=== PATIENT | female | born 1960 | race Caucasian/White ===

== ENCOUNTER 2021-07-20 07:21 | Day surgery (SDC) | payer OTHER ==
[2021-07-20] MEDS ORDERED: Ringers Lactate 1,000 ML IV ONE (07:30)
[2021-07-20] MEDS ORDERED: LIDOCAINE 1% MPF 5 ML VIAL ONE (07:58)
[2021-07-20] MEDS ORDERED: propofoL 200 MG/20 ML VIAL IV ONE ×2 (07:58)
[2021-07-20] MEDS ORDERED: ONDANSETRON 4 MG/2 ML VIAL ONE (08:52)
--- NOTE | 2021-07-20 09:36 | OP ---
Surgeon: Anders Agosto MD Procedure Performed: Colonoscopy. Indication For Procedure: Modification of bowel habits, worsening constipation. Anesthesia: Monitored anesthesia care. Complexity: High due to patient's pulmonary issues. Technique: After obtaining informed consent from the patient explaining risks and complications whic h include, but are not limited to bleeding, infection, perforation, and anesthesia complication, she was placed in the left lateral position, and sedation was given. A digital rectal exam was performed and scope inserted into the rectum and carefully guided up till the cecum. The cecum was identified by the appendiceal orifice, which appeared to be postsurgical due to appendectomy and ileocecal valv e and also by one-to-one pressure in the right lower quadrant. Gradually, the scope was withdrawn an d the mucosa carefully examined. Scope withdrawal time was 15 minutes. Quality of prep was good. Findings: The entire colon was quite redundant, consistent with history of constipation. In the cec um, 4 to 5 mm sessile polyp was seen and this was removed by hot biopsy polypectomy. In the transver se colon, a 5 mm sessile polyp was seen which was seen removed with hot biopsy polypectomy. In the r ectum, a 3 to 4 mm polyp was seen and this was also removed by hot biopsy polypectomy. Retroflexion revealed grade 1 internal hemorrhoids. Complications: None. Tolerance To Anesthesia: Excellent. Postoperative Diagnosis: Polyps, redundant colon. Plan: Await pathology results. Return to GI clinic in 2 weeks. Repeat colonoscopy in 3 to 5 years based on pathology. EGD would be indicated, if the patient has any upper GI symptoms. US/MODL Voice ID: [id number] Report ID: [id number]
[2021-07-20 09:45] VITALS: O2SAT 100
[2021-07-20 09:53] VITALS: BP 132/74; TEMP 97.6
== END 2021-07-20 09:30 | disposition home or self-care (01) ==
LOC: OR 07:21
PROVIDERS: ATTEND Internal Medicine Gastroenterology
PROC: 0DBL8ZX Excision of Transverse Colon, Via Natural or Artificial Opening Endoscopic, Diagnostic (ICD-10-PCS; 2021-07-20)
PROC: 0DBP8ZX Excision of Rectum, Via Natural or Artificial Opening Endoscopic, Diagnostic (ICD-10-PCS; 2021-07-20)
PROC: 0DBH8ZX Excision of Cecum, Via Natural or Artificial Opening Endoscopic, Diagnostic (ICD-10-PCS; principal; 2021-07-20 08:00)
DX: K59.00 Constipation, unspecified (principal); Q43.8 Other specified congenital malformations of intestine; K63.5 Polyp of colon; Z20.822 Contact with and (suspected) exposure to COVID-19; R14.0 Abdominal distension (gaseous)
CPT/HCPCS: 88305; 45384; U0003; J2704 ×2; J7120; J2405